=== PATIENT | female | born 1970 | race Caucasian/White ===

== ENCOUNTER → 2017-08-06 | Outpatient (CLI) | payer MEDICARE, MEDICAID ==
[~2017-08-06] MED LIST: CARAFATE 1GM1 G PO; CARAFATE PO; CLONAZEPAM PO; COMBIRESP IH; DEPAKOTE ER 50500 MG PO; DESYREL 100MG100 MG PO; DEXILANT30 MG PO; FLEXERIL; HYDROMORPHONE HC2 MG PO; INDERAL 20MG20 MG PO; KLONOPIN 1MG1 MG PO; LIDODERM; LIORESAL 1010 MG/TAB PO; OXYCODONE; PERCOCET 325 MG1 TA2 PO; PERCOCET 325 MG1 TAB PO; PERCOCET 500 MG1 TAB PO; PHENERGAN 25 TA25 MG PO; PHENERGAN W/CO120 ML PO; PRIL40; PROTONIX 40MG T40 MG PO; PYRIDIUM 100MG100 MG PO; REGLAN 10MG10 MG/TAB PO; STOOL SOFTENER100 MG PO; VENTOLIN0.09 MG IH
== END ==
LOC: COL.RAD 12:41
DX: M25.511 Pain in right shoulder (principal)
CPT/HCPCS: J3301; Q9967

== ENCOUNTER → 2021-07-23 | Outpatient (CLI) | payer MEDICARE, MEDICAID | LOC: MC.RAD 08:28 | DX: R92.0 Mammographic microcalcification found on diagnostic imaging of breast (principal) ==

== ENCOUNTER 2023-11-02 11:30 | Day surgery (SDC) | payer MEDICARE, MEDICAID ==
[~2023-11-02] VITALS: Ht 170.2 cm; Wt 62.6 kg
[~2023-11-02 11:30] MED LIST changes: +LR 1,000 ML IV SCH
[2023-11-02] MEDS ORDERED: PERCOCET 325 MG1 TAB PO (12:05)
[2023-11-02] MEDS ORDERED: NORFLEX 10100 MG/TAB PO (12:05)
[2023-11-02] MEDS ORDERED: REMERON30 MG PO (12:06)
[2023-11-02] MEDS ORDERED: PHENERGAN 25 TA25 MG PO (12:06)
[2023-11-02] MEDS ORDERED: DESYREL 100MG100 MG PO (12:07)
[2023-11-02] MEDS ORDERED: VENTOLIN0.09 MG IH (12:12)
[2023-11-02] MEDS ORDERED: IMITREX 6M6 MG/0.5 M SQ (12:13)
[2023-11-02] MEDS ORDERED: DITROPAN XL15 MG PO (12:13)
[2023-11-02] MEDS ORDERED: DEXILANT30 MG PO (12:14)
[2023-11-02] MEDS ORDERED: SYNTHROID0.088 MG/T PO (12:15)
[2023-11-02] MEDS ORDERED: ZOFRAN 4MG T4 MG/TAB PO (12:15)
[2023-11-02 12:56] VITALS: BP 115/85; PULSE 109; TEMP 98.1
[2023-11-02] MEDS ORDERED: Succinylcholine PF 200 MG/10 ML SYRINGE IV ONE (13:07)
[2023-11-02] MEDS ORDERED: dexAMETHasone 10 MG/ML VIAL ONE (13:08)
[2023-11-02] MEDS ORDERED: Lidocaine PF 2% (20 MG/ML) 5 ML VIAL ONE (13:10)
[2023-11-02] MEDS ORDERED: Midazolam 2 MG/2 ML VIAL ONE (13:11)
[2023-11-02] MEDS ORDERED: fentaNYL 50 MCG/ML 2 ML VIAL ONE ×2 (13:12→14:44)
[2023-11-02] MEDS ORDERED: Rocuronium 50 MG/5 ML Multi-Dose VIAL ONE (13:13)
[2023-11-02] MEDS ORDERED: Ondansetron 4 MG/2 ML VIAL ONE (14:19)
[2023-11-02] MEDS ORDERED: NS 10 ML IV ONE (14:39)
[2023-11-02] MEDS ORDERED: Ondansetron 4 MG/2 ML VIAL IV PRN (14:45)
[2023-11-02] MEDS ORDERED: fentaNYL 50 MCG/ML 1 ML SYRINGE/VIAL [PACU/SDC ONLY] IV PRN (14:45)
[2023-11-02] MEDS ORDERED: hydrALAZINE 20 MG/ML 1 ML VIAL IV PRN (14:45)
[2023-11-02] MEDS ORDERED: HYDROmorphone 1 MG/1 ML SYRINGE [PACU/SDC ONLY] IV PRN (14:45)
[2023-11-02] MEDS ORDERED: Morphine 4 MG/ML VIAL IV PRN (15:00)
[2023-11-02] MEDS ORDERED: Promethazine 25 MG TAB PO PRN (15:00)
[2023-11-02] MEDS ORDERED: oxyCODONE/Acetaminophen 5-325 MG TAB PO PRN (15:00)
[2023-11-02] MEDS ORDERED: HYDROcodone/Acetaminophen 7.5-325 MG TAB PO PRN (15:00)
[2023-11-02] MEDS ORDERED: ULTRAM 50MG TAB50 MG PO (15:06)
[2023-11-02 16:10] VITALS: BP 116/57; PULSE 99; TEMP 96.9
--- NOTE | 2023-11-02 16:10 | NUR ---
REPORT FROM EFRAIN Allan RN. TRANSPORTED PATIENT FROM PACU TO BAY 3 VIA CART. PATIENT ALERT AND ORIENTED X3. DENIES PAIN, NAUSEA AND SHORTNESS OF BREATH. BREATHING REGULAR AND UNLABORED ON ROOM AIR. SKIN WARM AND DRY. MOVES RIGHT HAND FINGERS FREELY. CAPILLARY REFILL <3 SECONDS. STRONG BILATERAL RADIAL PULSES. VISIBLE FOAM TAPE DRESSING TO RIGHT SHOULDER. DRESSING IS CLEAN, DRY AND INTACT. SLING PRESENT TO RIGHT ARM. PATIENT HAS NO COMPLAINTS AND HAD CHOCOLATE PUDDING AND WATER. NO DYSPHAGIA. SEE CHART FOR VITAL SIGNS. CALL LIGHT IN REACH.
[2023-11-02 16:20] VITALS: BP 118/60; PULSE 98
[2023-11-02 16:30] VITALS: BP 112/70; PULSE 96
[2023-11-02 16:45] VITALS: BP 116/74; PULSE 96
--- NOTE | 2023-11-02 17:00 | NUR ---
1639: DISCHARGE TEACHING COMPLETED WITH PRINTED EDUCATION AND INSTRUCTIONS SENT HOME WITH PATIENT. PATIENT VERBALIZED UNDERSTANDING. 1644: DENIES PAIN, NAUSEA AND SHORTNESS OF BREATH. RIGHT SHOULDER DRESSING CLEAN, DRY AND INTACT. PATIENT INFORMED NURSE THAT SHE WAS READY TO GO HOME. IV REMOVED. GAUZE AND COBAN PLACED OVER SITE. 1645: PATIENT AMBULATED TO RESTROOM WITH STEADY GAIT AND VOIDED WITHOUT DIFFICULTY. 1700: PATIENT CHANGED INTO PERSONAL CLOTHING. RIGHT ARM SLING IN PLACE. DISCHARGED HOME WITH [facility].
== END 2023-11-02 17:00 | disposition home or self-care (01) ==
LOC: SDCO 11:30
DX: M19.011 Primary osteoarthritis, right shoulder (principal); M75.101 Unspecified rotator cuff tear or rupture of right shoulder, not specified as traumatic; M75.51 Bursitis of right shoulder; M24.011 Loose body in right shoulder; G89.18 Other acute postprocedural pain; F17.210 Nicotine dependence, cigarettes, uncomplicated
CPT/HCPCS: A4566; A4619; J0690; J1100; J2250; J2405; J2704; J2795; J3010; J7120